=== PATIENT | male | born 1985 | race Caucasian/White ===

== ENCOUNTER → 2021-12-10 | Outpatient (CLI) | payer OTHER | LOC: MHCPAIN 08:10 | DX: M25.551 Pain in right hip (principal); M79.18 Myalgia, other site | CPT/HCPCS: G0463 ==

== ENCOUNTER → 2021-12-19 | Outpatient (CLI) | payer OTHER | LOC: COL.RAD 07:06 | DX: M25.551 Pain in right hip (principal) | CPT/HCPCS: Q9967 ==